=== PATIENT | male | born 1980 | race African-American/Black ===

== ENCOUNTER 2024-11-06 09:28 | Emergency (ER) | payer MEDICAID ==
[~2024-11-06] VITALS: Ht 182.9 cm; Wt 87.0 kg
[2024-11-06 09:38] VITALS: TEMP 36.8; O2SAT 100
[2024-11-06] MEDS: IBUPROFEN 800MG TABLET PO ONE (10:12)
[2024-11-06] MEDS: ACETAMINOPHEN 325MG TABLET PO ONE (10:12)
[2024-11-06 11:27] LABS: BASOPHILS % 0.6 % (0.0-2.0); EOSINOPHILS % 1.4 % (0.0-5.0); HEMATOCRIT. 43.1 % (42.0-52.0); HEMOGLOBIN. 14.8 g/dL (14.0-18.0); LYMPHOCYTES % 27.7 % (20.0-50.0); MEAN PLATELET VOLUME 8.5 fl (7.4-10.4); MONOCYTES % 10.6 % (2.0-8.0); NEUTROPHILS % 59.7 % (40.0-76.0); PLATELET 311 x1000/uL (130-400); RED BLOOD CELL COUNT 4.59 mill/uL (4.7-6.1); RED CELL DISTRIBUTION WIDTH 12.8 % (11.6-14.6)
[2024-11-06 11:37] LABS: CREATININE 1.3 mg/dL (0.6-1.3); UREA NITROGEN BLOOD 13 mg/dL (9-23)
[2024-11-06 11:39] LABS: ASPARTATE AMINOTRANSFERASE 21 IU/L (<34); BILIRUBIN DIRECT 0.2 mg/dL (<=3.0); BILIRUBIN TOTAL 0.5 mg/dL (0.1-1.0); PROTEIN TOTAL 8.9 g/dL (6.0-8.3)
[2024-11-06 11:49] LABS: CLARITY URINE CLEAR (CLEAR); COLOR URINE YELLOW (YELLOW); GLUCOSE URINE TRACE (NEGATIVE); KETONES URINE TRACE (NEGATIVE); LEUKOCYTE ESTERASE URINE NEGATIVE (NEGATIVE); NITRITE URINE NEGATIVE (NEGATIVE); OCCULT BLOOD URINE NEGATIVE (NEGATIVE); PH URINE 6.0 (4.5-8.0); PROTEIN URINE 3+ (NEGATIVE); SPECIFIC GRAVITY URINE 1.028 (1.005-1.030); UROBILINOGEN URINE 1.0 E.U./dL (0.2-1.0)
[2024-11-06 12:05] LABS: MUCUS URINE TRACE /lpf (NONE/TRACE); SQUAMOUS EPITHELIAL CELL URINE RARE /lpf (RARE/1+)
[2024-11-06 12:07] LABS: WBC URINE 0-2 /hpf (0-2)
[2024-11-06 12:08] LABS: BACTERIA URINE TRACE
[2024-11-06] MEDS ORDERED: IBUP-1525 MT (12:09)
[2024-11-06] MEDS ORDERED: P50 MT (12:09)
[2024-11-06] MEDS ORDERED: TOPUD MT (12:09)
[2024-11-06 12:11] LABS: RBC URINE NONE SEEN /hpf (0-2)
[2024-11-06 12:58] VITALS: BP 184/105; PULSE 78; RESP 18; O2SAT 100
== END 2024-11-06 13:15 | disposition home or self-care (01) ==
LOC: ER 09:28
DX: M47.812 Spondylosis without myelopathy or radiculopathy, cervical region (principal); E11.9 Type 2 diabetes mellitus without complications; I10 Essential (primary) hypertension; Z88.0 Allergy status to penicillin
CPT/HCPCS: 36415; 80048; 80076; 81003; 82962; 83735; 85025; 99284